=== PATIENT | female | born 1980 | race Caucasian/White ===

== ENCOUNTER 2018-02-04 07:35 | Emergency (ER) | END 2018-02-04 12:05 | disposition home or self-care (01) ==

== ENCOUNTER 2018-10-29 14:00 | Inpatient (IN) | END 2018-11-02 17:10 | disposition home or self-care (01) | DRG 807 ==

== ENCOUNTER 2019-01-05 04:08 | Emergency (ER) | payer BC ==
[~2019-01-05] VITALS: Ht 152.4 cm; Wt 74.5 kg
[~2019-01-05 04:08] MED LIST: METF-849 PO; PREN1TAB62 PO
[2019-01-05 04:15] VITALS: Ht 152.4 cm; Wt 74.5 kg
[2019-01-05] MEDS ORDERED: morphine 4 MG/ML VIAL IV STA (04:44)
[2019-01-05] MEDS ORDERED: ONDANSETRON 4 MG INJ IV STA ×2 (04:44→07:25)
--- NOTE | 2019-01-05 04:44 | ERD ---
ER Documentation Chief Complaint Chief Complaint PT C/O RUQ ABD PAIN RADIATES TO BACK ,N/V X2 DAYS. HPI 38-year-old female presents emergency department with complaints of right upper abdominal pain that started yesterday. Has nausea and vomiting. Stated that she gave 2 months ago. LMP: 2 weeks ago. . Denies headache, dizziness, blurry vision, changes in vision, neck pain, neck stiffness, throat pain, difficulty swallowing, difficulty breathing lying flat, loss of bowel bladder control, urinary symptoms, or possibility of being , vaginal bleeding, vaginal discharge, trauma, injury, falls, r ecent surgery in the last 3 weeks, recent travel, recent long travel, leg pain, difficulty walking, numbness or tingling sensation, recent exposure to any illness, recent antibiotic use in the last 3 months, fever, chills. Past medical history: Diabetes, gallstone. Surgical history: Denies. Medic ation: Metformin. ROS All systems reviewed and are negative except as per history of present illness. Medications Home Meds Active Scripts Metformin* (Glucophage*) 500 Mg Tab, 500 MG PO BID, #20 TAB Prov:SAMIR BOYCE PA-C 02/04/18 Reported Medications Vit-Iron Fumarate-FA ( Vitamin Tablet) 1 Each Tablet, 1 TAB PO DAILY, TAB 02/18/16 Allergies Allergies: Coded Allergies: No Known Allergy (Unverified , 09/05/16) PMhx/Soc Hx Alcohol Use: Yes (social) Hx Substance Use: No Hx Tobacco Use: No Physical Exam Vitals Vital Signs Date Temp Pulse Resp B/P (MAP) Pulse Ox O2 O2 Flow FiO2 Time Delivery Rate 01/05/19 98.5 75 17 146/75 100 04:15 (98) Physical Exam Const: No acute distress Head: Atraumatic Eyes: Normal Conjunctiva ENT: Normal External Ears, Nose and Mouth. Neck: Full range of motion. No meningismus. Resp: Clear to auscultation bilaterally Cardio: Regular rate and rhythm, no murmurs Abd: Soft, non tender, non distended. Normal bowel sounds. Has right upper abdominal tenderness to light and deep palpation. Negative José Miguel sign (heel jar test). Negative psoas sign. Negative Rovsing sign. No CVA tenderness. Skin: No petechiae or rashes. Back: No midline or flank tenderness Ext: No cyanosis, or edema Neur: Awake and alert. No neurological deficit. Psych: Normal Mood and Affect Result Diagram: 01/05/19 0453 01/05/19 0453 Results 24 hrs Laboratory Tests Test 01/05/19 04:53 01/05/19 06:41 White Blood Count 7.8 10^3/ul Red Blood Count 4.28 10^6/ul Hemoglobin 12.1 g/dl Hematocrit 36.9 % Mean Corpuscular Volume 86.2 fl Mean Corpuscular Hemoglobin 28.3 pg Mean Corpuscular Hemoglobin Concent 32.8 g/dl Red Cell Distribution Width 15.2 % Platelet Count 219 10^3/UL Mean Platelet Volume 13.6 fl Immature Granulocytes % 0.300 % Neutrophils % 74.1 % Lymphocytes % 18.9 % Monocytes % 5.7 % Eosinophils % 0.6 % Basophils % 0.4 % Nucleated Red Blood Cells % 0.0 /100WBC Immature Granulocytes # 0.020 10^3/ul Neutrophils # 5.8 10^3/ul Lymphocytes # 1.5 10^3/ul Monocytes # 0.4 10^3/ul Eosinophils # 0.1 10^3/ul Basophils # 0.0 10^3/ul Nucleated Red Blood Cells # 0.0 10^3/ul Urine Color YELLOW Urine Clarity CLEAR Urine pH 5.0 Urine Specific [place] 1.036 Urine Ketones NEGATIVE mg/dL Urine Nitrite NEGATIVE mg/dL Urine Bilirubin NEGATIVE mg/dL Urine Urobilinogen NEGATIVE mg/dL Urine Leukocyte Esterase NEGATIVE Melina/ul Urine Hemoglobin NEGATIVE mg/dL Urine Glucose 3+ mg/dL Urine Total Protein NEGATIVE mg/dl Urine Test NEGATIVE Sodium Level 136 mmol/L Potassium Level 4.2 mmol/L Chloride Level 103 mmol/L Carbon Dioxide Level 25 mmol/L Anion Gap 8 Blood Urea Nitrogen 13 mg/dl Creatinine 0.38 mg/dl Est Glomerular Filtrat Rate mL/min > 60 mL/min Glucose Level 307 mg/dl Calcium Level 9.6 mg/dl Total Bilirubin 0.2 mg/dl Direct Bilirubin 0.00 mg/dl Indirect Bilirubin 0.2 mg/dl Aspartate Amino Transf (AST/SGOT) 26 IU/L Alanine Aminotransferase (ALT/SGPT) 48 IU/L Alkaline Phosphatase 72 IU/L Total Protein 6.9 g/dl Albumin 4.0 g/dl Globulin 2.90 g/dl Albumin/Globulin Ratio 1.37 Amylase Level 61 U/L Lipase 136 U/L Bedside Glucose 296 mg/dL Current Medications Medications Dose Sig/Evelia Start Time Status Last (Trade) Ordered Route PRN Stop Time Admin Dose Reason Admin Sodium 1,000 ml @ Q1H ONCE 01/05/19 DC 01/05/19 Chloride 1,000 mls/hr IV 05:00 05:00 01/05/19 05:59 Ondansetron 4 mg ONCE STAT 01/05/19 DC 01/05/19 HCl (Zofran IV 04:44 05:00 Inj) 01/05/19 04:48 Morphine 4 mg ONCE STAT 01/05/19 DC 01/05/19 Sulfate IV 04:44 05:00 (morphine) 01/05/19 04:48 Procedures/MDM Diagnostic tests: HCG urine: Negative. Urinalysis: Reviewed. Blood works: Reviewed. Chest x-ray: No evidence for active cardiopulmonary disease. Ultrasound of the gallbladder: Distended gallbladder with stones and sludge. Positive sonographic Patino sign but no wall thickening or pericholecystic fluid. Findings are equivocal for acute cholecystitis. Consider scintigraphy for more definitive diagnosis. Fatty liver. No evidence of biliary obstruction. Poor visualization of pancreas. Treatment: Saline lock. Normal saline IV bolus. Morphine IV. Zofran IV. Re-evaluation: Differential diagnosis Final diagnosis: LEIA HUBER Jan 05, 2019 04:44
[2019-01-05] MEDS ORDERED: SOD CHLORIDE 0.9% 1,000 ML IV ONE (05:00)
[2019-01-05] MEDS ORDERED: HYDROmorphONE 1 MG/ML SYG IV STA (07:25)
[2019-01-05] MEDS ORDERED: KETOROLAC 30 MG INJ IV STA (07:25)
[2019-01-05] MEDS ORDERED: SOD CHLORIDE 0.9% 1,000 ML IV STA (07:25)
--- NOTE | 2019-01-05 07:26 | ERD ---
ER Documentation Chief Complaint Chief Complaint PT C/O RUQ ABD PAIN RADIATES TO BACK ,N/V X2 DAYS. HPI This is a very pleasant 38-year-old female with a history of [id number] diabetes mellitus and cholelithiasis. The patient said no past surgical history. The patient gave 2 months ago and currently is breast-feeding as well as giving the child formula. She indicates that at midnight, 2 hours prior to the onset of her symptoms she had eaten a meal. At 2 AM she awoke to feed her baby. She stated while breast-feeding she had a sudden onset of severe right upper quadrant pain that radiated to the tip of her right scapula. She states the pain was a sharp pain. 10 out of 10 in intensity. She had associated symptoms of nausea but did not experience any emesis. She indicated that the pain persisted for several hours that prompted her to come to the emergency department to be further evaluated. She did have one episode of nonbloody nonbilious emesis just prior to arrival. She had no diarrhea. She denies any recent travel. She states the pain does not radiate to her lower abdomen or back. She said no frequency urgency or dysuria denies any gross hematuria. She has no shortness of breath at rest or exertion. She denies any swelling of her lower extremities. ROS All systems reviewed and are negative except as per history of present illness. Medications Home Meds Active Scripts Metformin* (Glucophage*) 500 Mg Tab, 500 MG PO BID, #20 TAB Prov:SAMIR BOYCE PA-C 02/04/18 Reported Medications Vit-Iron Fumarate-FA ( Vitamin Tablet) 1 Each Tablet, 1 TAB PO DAILY, TAB 02/18/16 Allergies Allergies: Coded Allergies: No Known Allergy (Unverified , 09/05/16) PMhx/Soc Medical and Surgical Hx: pt denies Surgical Hx Hx Miscellaneous Medical Probl: Yes (DM) Hx Alcohol Use: Yes (social) Hx Substance Use: No Hx Tobacco Use: No Smoking Status: Never smoker Physical Exam Vitals Vital Signs Date Temp Pulse Resp B/P (MAP) Pulse Ox O2 O2 Flow FiO2 Time Delivery Rate 01/05/19 98.5 75 17 146/75 100 04:15 (98) Physical Exam Constitutional:Well-developed. Well-nourished. HEENT:Normocephalic. Atraumatic.Pupils were equal round reactive to light. Moist mucous membranes.No tonsillar exudates. Neck: No nuchal rigidity. No lymphadenopathy. No posterior cervical spine tenderness or step-offs. Respiratory: Not using accessory muscles of respiration.Lungs were clear to auscultation bilaterally. No rhonchi. No rales. No wheezing. Cardiovascular: Regular rate regular rhythm.No murmurs. No rubs were appreciated.S1, S2 normal. Distal pulses are palpable 2+ bilaterally. GI: Abdomen was soft. Right upper quadrant tenderness with positive Patino sign. No tenderness in the right lower quadrant over McBurney's point. Psoas sign negative. Obturator sign negative. Non Distended. No pulsatile abdominal masses or bruits. No rebound. No guarding. Bowel sounds were present and normal. Muscle skeletal: Full range of motion of both the upper and lower extremities bilaterally.Normal muscle tone.No assymetrical calf tenderness or swelling. Skin: No petechia, no purpura. No lesions on the palms or the soles of the feet. No maculopapular rash. NEURO: Patient was alert, awake, orientated x3.No facial droop. Gait observed and normal with no ataxia.Speech had regular rate and rhythm. No focal neurological deficits. Result Diagram: 01/05/19 0453 01/05/19 0453 Results 24 hrs Laboratory Tests Test 01/05/19 04:53 01/05/19 06:41 White Blood Count 7.8 10^3/ul Red Blood Count 4.28 10^6/ul Hemoglobin 12.1 g/dl Hematocrit 36.9 % Mean Corpuscular Volume 86.2 fl Mean Corpuscular Hemoglobin 28.3 pg Mean Corpuscular Hemoglobin Concent 32.8 g/dl Red Cell Distribution Width 15.2 % Platelet Count 219 10^3/UL Mean Platelet Volume 13.6 fl Immature Granulocytes % 0.300 % Neutrophils % 74.1 % Lymphocytes % 18.9 % Monocytes % 5.7 % Eosinophils % 0.6 % Basophils % 0.4 % Nucleated Red Blood Cells % 0.0 /100WBC Immature Granulocytes # 0.020 10^3/ul Neutrophils # 5.8 10^3/ul Lymphocytes # 1.5 10^3/ul Monocytes # 0.4 10^3/ul Eosinophils # 0.1 10^3/ul Basophils # 0.0 10^3/ul Nucleated Red Blood Cells # 0.0 10^3/ul Urine Color YELLOW Urine Clarity CLEAR Urine pH 5.0 Urine Specific [place] 1.036 Urine Ketones NEGATIVE mg/dL Urine Nitrite NEGATIVE mg/dL Urine Bilirubin NEGATIVE mg/dL Urine Urobilinogen NEGATIVE mg/dL Urine Leukocyte Esterase NEGATIVE Melina/ul Urine Hemoglobin NEGATIVE mg/dL Urine Glucose 3+ mg/dL Urine Total Protein NEGATIVE mg/dl Urine Test NEGATIVE Sodium Level 136 mmol/L Potassium Level 4.2 mmol/L Chloride Level 103 mmol/L Carbon Dioxide Level 25 mmol/L Anion Gap 8 Blood Urea Nitrogen 13 mg/dl Creatinine 0.38 mg/dl Est Glomerular Filtrat Rate mL/min > 60 mL/min Glucose Level 307 mg/dl Calcium Level 9.6 mg/dl Total Bilirubin 0.2 mg/dl Direct Bilirubin 0.00 mg/dl Indirect Bilirubin 0.2 mg/dl Aspartate Amino Transf (AST/SGOT) 26 IU/L Alanine Aminotransferase (ALT/SGPT) 48 IU/L Alkaline Phosphatase 72 IU/L Total Protein 6.9 g/dl Albumin 4.0 g/dl Globulin 2.90 g/dl Albumin/Globulin Ratio 1.37 Amylase Level 61 U/L Lipase 136 U/L Bedside Glucose 296 mg/dL Current Medications Medications Dose Sig/Evelia Start Time Status Last (Trade) Ordered Route PRN Stop Time Admin Dose Reason Admin Sodium 1,000 ml @ Q1H ONCE 01/05/19 DC 01/05/19 Chloride 1,000 mls/hr IV 05:00 05:00 01/05/19 05:59 Ondansetron 4 mg ONCE STAT 01/05/19 DC 01/05/19 HCl (Zofran IV 04:44 05:00 Inj) 01/05/19 04:48 Morphine 4 mg ONCE STAT 01/05/19 DC 01/05/19 Sulfate IV 04:44 05:00 (morphine) 01/05/19 04:48 Sodium 1,000 ml @ Q1H STAT 01/05/19 Chloride 1,000 mls/hr IV 07:25 01/05/19 08:24 1 mg ONCE STAT 01/05/19 DC Hydromorphone IV 07:25 HCl 01/05/19 07:26 (Dilaudid) Ondansetron 4 mg ONCE STAT 01/05/19 DC HCl (Zofran IV 07:25 Inj) 01/05/19 07:26 Ketorolac 30 mg ONCE STAT 01/05/19 DC Tromethamine IV 07:25 (Toradol) 01/05/19 07:26 Procedures/MDM The patient presented to the emergency department with epigastric pain. My differential diagnosis included but was not limited to abdominal aortic aneurysm, choledocholithiasis, gallstone ileus, renal colic, pyelonephritis, pancreatitis, peptic ulcer disease, atypical myocardical infarction, mesenteric ischemia, GERD, pulmonary infarction. The patient was placed on a rustic fence builder, continuous pulse oximetry and IV access was established by nursing staff. The patient was given intravenous morphine and Zofran for analgesic control. The patient's blood glucose is elevated at 307 however there is no evidence of ketosis. The patient received IV fluids to improve her hyperglycemia There was no elevation of LFTs to suggest ductal obstruction, cholangitis, cholecystiitis or hepatitis. Given that the urinalysis did not show bilirubinuria, my suspicion for common duct obstruction or hepatitis was low. I did obtain a 1 view chest radiograph in order to rule out for a right lower lobe pneumonia. There is no infiltrates that were seen on the chest radiograph. An ultrasound of the patient's abdomen was performed. The patient had a distended gallbladder with stones and sludge. There is positive sonographic Patino sign however there is no gallbladder wall thickening and no pericholecystic fluid. On the ultrasound the findings were equivocal for acute cholecystitis. I performed multiple repeat abdominal examinations. The patient's abdomen was benign with no peritoneal signs. She had received analgesic medication which further included Dilaudid Toradol and fluids. I had a lengthy discussion with the patient and she stated she would prefer to be discharged and did not want to have an emergent cholecystectomy given that she has a 2-month-old at home. She states she has had this pain in the past and has seen a surgeon. She states she would prefer to follow-up with her surgeon and schedule an outpatient cholecystectomy. The patient was discharged home in fair condition. They were instructed to return to the emergency department at any time if there was any worsening of their condition. The patient stated they would follow up with their PCP in the next 24-48 hours to initiate a suitable medication regimen under the care of their PCP as well as to allow their PCP to monitor any drug reactions. The patient was discharged home with prescriptions after they gave informed consent to the new medication. They were also fully informed by myself on the adverse effects and adverse drug interactions in order to provide adequate safe guards to prevent possible adverse reactions to medications. Departure Diagnosis: Primary Impression: Cholelithiasis Cholelithiasis location: gallbladder Cholecystitis presence: without cholecystitis Biliary obstruction: without biliary obstruction Qualified Codes: K80.20 - Calculus of gallbladder without cholecystitis without obstruction Additional Impression: Hyperglycemia without ketosis Condition: BRO Berry MD Jan 05, 2019 07:26
[2019-01-05] MEDS ORDERED: DOCU-144 PO (07:36)
[2019-01-05] MEDS ORDERED: IBUP800T48 PO (07:36)
[2019-01-05] MEDS ORDERED: HYDR-4011 PO (07:36)
[2019-01-05] MEDS ORDERED: ONDA4TAB14 PO (07:36)
[2019-01-05 08:34] VITALS: BP 99/54; PULSE 77; RESP 18
== END 2019-01-05 08:36 | disposition home or self-care (01) ==
LOC: FTE 04:08
DX: K80.20 Calculus of gallbladder without cholecystitis without obstruction (principal); E11.65 Type 2 diabetes mellitus with hyperglycemia; Z79.84 Long term (current) use of oral hypoglycemic drugs
CPT/HCPCS: 71046; 76705; 80053; 81003; 82150; 82962; 83690; 84703; 85025; 96361; 96374; 96375; 96376; 99285; J1170; J1885; J2270; J2405; J7030

== ENCOUNTER 2019-02-21 18:31 | Emergency (ER) | payer BC ==
[~2019-02-21] VITALS: Ht 157.5 cm; Wt 72.4 kg
[~2019-02-21 18:31] MED LIST changes: +DOCU-144 PO; +HYDR-4011 PO; +IBUP800T48 PO; +ONDA4TAB14 PO
[2019-02-21 18:41] VITALS: Ht 157.5 cm; Wt 72.4 kg
[2019-02-21] MEDS ORDERED: HYDROmorphONE 1 MG/ML SYG IV STA (21:14)
[2019-02-21] MEDS ORDERED: ONDANSETRON 4 MG INJ IV STA ×2 (21:14→23:30)
[2019-02-21] MEDS ORDERED: KETOROLAC 30 MG INJ IV STA (21:14)
[2019-02-21] MEDS ORDERED: SOD CHLORIDE 0.9% 1,000 ML IV STA ×2 (21:14→23:30)
--- NOTE | 2019-02-21 21:30 | ERD ---
ER Documentation Chief Complaint Chief Complaint Pt sched for choley next month but pain unbearable today HPI This is a 38-year-old female with a past medical history of cholelithiasis and [id number] diabetes. The patient has been at [facility] before for similar pain roughly 1 month ago. However she elected to not undergo a cholecystectomy as she was currently breast-feeding and had just given . Her child is 3 months of age. She indicates that on Monday roughly 4 days prior to arrival she developed recurrence of her right upper quadrant abdominal pain. The pain did radiate to the back. The pain is exacerbated with food. She indicates over the past several days she has had recurrence of these episodes of right upper quadrant pain however just prior to arrival the pain became 10 out of 10 in intensity with no alleviating or exacerbating factors. She stated she was expressing palpitations. She had taken [place] but this did not improve her symptoms. She had several episodes of nonbloody nonbilious emesis. ROS All systems reviewed and are negative except as per history of present illness. Medications Home Meds Active Scripts Ondansetron (Ondansetron Odt) 4 Mg Tab.rapdis, 4 MG PO Q6H PRN for NAUSEA AND/OR VOMITING, #10 TAB Prov:BRO RECIO MD 01/05/19 Hydrocodone/Acetaminophen ([place] 5-325 Tablet) 1 Each Tablet, 1 TAB PO Q6H PRN for PAIN, #20 TAB Prov:BRO RECIO MD 01/05/19 Ibuprofen* (Motrin*) 800 Mg Tab, 800 MG PO Q6H PRN for PAIN AND OR ELEVATED TEMP, #30 TAB Prov:BRO RECIO MD 01/05/19 Metformin* (Glucophage*) 500 Mg Tab, 500 MG PO BID, #20 TAB Prov:SAMIR BOYCE PA-C 02/04/18 Discontinued Reported Medications Vit-Iron Fumarate-FA ( Vitamin Tablet) 1 Each Tablet, 1 TAB PO DAILY, TAB 02/18/16 Discontinued Scripts Docusate Sodium* (Colace*) 100 Mg Capsule, 100 MG PO TID, #30 CAP Prov:BRO RECIO MD 01/05/19 Allergies Allergies: Coded Allergies: No Known Allergy (Unverified , 02/21/19) PMhx/Soc Medical and Surgical Hx: pt denies Surgical Hx Hx Miscellaneous Medical Probl: Yes (DM, gallstones) Hx Alcohol Use: Yes (social) Hx Substance Use: No Hx Tobacco Use: No Smoking Status: Never smoker Physical Exam Vitals Vital Signs Date Temp Pulse Resp B/P (MAP) Pulse Ox O2 O2 Flow FiO2 Time Delivery Rate 02/21/19 77 18 107/66 97 Room Air 22:35 (80) 02/21/19 98.7 85 16 148/81 100 18:41 (103) Physical Exam Constitutional:Well-developed. Well-nourished. Patient appeared to be in a significant amount discomfort secondary to pain HEENT:Normocephalic. Atraumatic.Pupils were equal round reactive to light. Moist mucous membranes.No tonsillar exudates. Neck: No nuchal rigidity. No lymphadenopathy. No posterior cervical spine tenderness or step-offs. Respiratory: Not using accessory muscles of respiration.Lungs were clear to auscultation bilaterally. No rhonchi. No rales. No wheezing. Cardiovascular: Regular rate regular rhythm.No murmurs. No rubs were appreciated.S1, S2 normal. Distal pulses are palpable 2+ bilaterally. GI: Abdomen was soft. Right upper quadrant tenderness. Positive Patino sign. No tenderness the right lower quadrant over McBurney's point. Psoas sign negative. Obturator sign negative.. Non Distended. No pulsatile abdominal masses or bruits. No rebound. No guarding. Bowel sounds were present and normal. Muscle skeletal: Full range of motion of both the upper and lower extremities bilaterally.Normal muscle tone.No assymetrical calf tenderness or swelling. Skin: No petechia, no purpura. No lesions on the palms or the soles of the feet. No maculopapular rash. NEURO: Patient was alert, awake, orientated x3.No facial droop. Gait observed and normal with no ataxia.Speech had regular rate and rhythm. No focal neurological deficits. Result Diagram: 02/21/19212502/21/192125 Results 24 hrs Laboratory Tests Test 02/21/19 19:32 02/21/19 21:26 Bedside Glucose 263 mg/dL White Blood Count 13.0 10^3/ul Red Blood Count 4.83 10^6/ul Hemoglobin 14.4 g/dl Hematocrit 42.1 % Mean Corpuscular Volume 87.2 fl Mean Corpuscular Hemoglobin 29.8 pg Mean Corpuscular Hemoglobin Concent 34.2 g/dl Red Cell Distribution Width 12.9 % Platelet Count 262 10^3/UL Mean Platelet Volume 14.4 fl Immature Granulocytes % 0.600 % Neutrophils % 87.7 % Lymphocytes % 7.5 % Monocytes % 4.0 % Eosinophils % 0.0 % Basophils % 0.2 % Nucleated Red Blood Cells % 0.0 /100WBC Immature Granulocytes # 0.080 10^3/ul Neutrophils # 11.4 10^3/ul Lymphocytes # 1.0 10^3/ul Monocytes # 0.5 10^3/ul Eosinophils # 0.0 10^3/ul Basophils # 0.0 10^3/ul Nucleated Red Blood Cells # 0.0 10^3/ul Urine Color YELLOW Urine Clarity SLIGHTLY CLOUDY Urine pH 5.0 Urine Specific [place] 1.038 Urine Ketones 2+ mg/dL Urine Nitrite NEGATIVE mg/dL Urine Bilirubin NEGATIVE mg/dL Urine Urobilinogen NEGATIVE mg/dL Urine Leukocyte Esterase NEGATIVE Melina/ul Urine Microscopic RBC 2 /HPF Urine Microscopic WBC 7 /HPF Urine Squamous Epithelial Cells FEW /HPF Urine Mucus FEW /HPF Urine Hemoglobin NEGATIVE mg/dL Urine Glucose 3+ mg/dL Urine Total Protein NEGATIVE mg/dl Sodium Level 135 mmol/L Potassium Level 4.6 mmol/L Chloride Level 99 mmol/L Carbon Dioxide Level 24 mmol/L Anion Gap 12 Blood Urea Nitrogen 9 mg/dl Creatinine 0.34 mg/dl Est Glomerular Filtrat Rate mL/min > 60 mL/min Glucose Level 257 mg/dl Calcium Level 9.7 mg/dl Total Bilirubin 1.0 mg/dl Direct Bilirubin 0.00 mg/dl Indirect Bilirubin 1.0 mg/dl Aspartate Amino Transf (AST/SGOT) 21 IU/L Alanine Aminotransferase (ALT/SGPT) 29 IU/L Alkaline Phosphatase 75 IU/L Troponin I < 0.012 ng/ml Total Protein 8.2 g/dl Albumin 4.6 g/dl Globulin 3.60 g/dl Albumin/Globulin Ratio 1.27 Amylase Level 60 U/L Lipase 49 U/L Current Medications Medications Dose Sig/Evelia Start Time Status Last (Trade) Ordered Route PRN Stop Time Admin Dose Reason Admin Sodium 1,000 ml @ Q1H STAT 02/21/19 DC 02/21/19 Chloride 1,000 mls/hr IV 21:14 02/21/19 21:21 22:13 1 mg ONCE STAT 02/21/19 DC 02/21/19 Hydromorphone IV 21:14 02/21/19 21:21 HCl 21:16 (Dilaudid) Ondansetron 4 mg ONCE STAT 02/21/19 DC 02/21/19 HCl (Zofran IV 21:14 02/21/19 21:20 Inj) 21:16 Ketorolac 30 mg ONCE STAT 02/21/19 DC 02/21/19 Tromethamine IV 21:14 02/21/19 21:20 (Toradol) 21:16 Procedures/MDM The patient presented to the emergency department with epigastric pain. My differential diagnosis included but was not limited to abdominal aortic aneurysm, choledocholithiasis, gallstone ileus, renal colic, pyelonephritis, pancreatitis, peptic ulcer disease, atypical myocardical infarction, mesenteric ischemia, GERD, pulmonary infarction. The patient was placed on a cardiac technician, continuous pulse oximetry and IV access was established by nursing staff. The patient received intravenous morphine and Zofran for analgesic control There was no elevation of LFTs to suggest ductal obstruction, cholangitis, or hepatitis. Given that the urinalysis did not show bilirubinuria, my suspicion for common duct obstruction or hepatitis was low. Ultrasound of the gallbladder reviewed by myself the radiologist indicate the following: Small calcified stones and a moderate amount of sludge within the gallbladder. Associated gallbladder wall thickening and pericholecystic fluid may represent acute cholecystitis. This could be confirmed with a HIDA scan if clinically indicated. Observation Note: Time: 5 hours Family Hx: No Hypertension Evaluation: Multiple exams showed improving symptoms however indicated the patient that clinically I was concerned with acute cholecystitis. The patient was a medical capacity to make own decisions and stated that she would prefer to leave and follow-up on an outpatient basis with a cholecystectomy as she currently has a 3-month-old child at home and at this time does not want any surgical intervention. She received a further dose of IV analgesic medication. She was however instructed that she can return to the emergency department anytime if there is any worsening of her symptoms. Departure Diagnosis: Primary Impression: Hyperglycemia without ketosis Additional Impression: Cholelithiasis Cholelithiasis location: gallbladder Cholecystitis presence: with cholecystitis Cholecystitis acuity: acute and chronic Biliary obstruction: without biliary obstruction Qualified Codes: K80.12 - Calculus of gallbladder with acute and chronic cholecystitis without obstruction Condition: BRO Berry MD Feb 21, 2019 21:29
[2019-02-21] MEDS ORDERED: PIPER-TAZO 3.375 GM IV (PMX) 100 ML IVPB ONE (23:30)
[2019-02-21] MEDS ORDERED: morphine 4 MG/ML VIAL IV STA (23:30)
[2019-02-21] MEDS ORDERED: DOCU-144 PO (23:39)
[2019-02-21] MEDS ORDERED: IBUP800T48 PO (23:39)
[2019-02-21] MEDS ORDERED: HYDR-4011 PO (23:39)
[2019-02-22 00:06] VITALS: BP 104/61; PULSE 82; RESP 20
== END 2019-02-22 00:05 | disposition home or self-care (01) ==
LOC: E/R 18:31
DX: K80.12 Calculus of gallbladder with acute and chronic cholecystitis without obstruction (principal); E11.65 Type 2 diabetes mellitus with hyperglycemia; Z79.84 Long term (current) use of oral hypoglycemic drugs
CPT/HCPCS: 36415; 76705; 80053; 81001; 82150; 82962; 83690; 84484; 84703; 85025; 96374; 96375; 96376; 99285; J1170; J1885; J2270; J2405; J7030; 81003

== ENCOUNTER 2019-02-22 03:18 | Inpatient (IN) | payer BC ==
[~2019-02-22] VITALS: Ht 149.9 cm; Wt 73.6 kg
[~2019-02-22 03:18] MED LIST changes: -PREN1TAB62 PO
--- NOTE | 2019-02-22 03:49 | ERD ---
ER Documentation Chief Complaint Chief Complaint Abdominal pain HPI The patient is a 38-year-old female, presenting to the ER because of recurrent abdominal pain. She has had abdominal pain for the last 2 days, was seen earlier today, had an ultrasound that show gallbladder wall thickening and pericholecystic fluid, concerning for acute cholecystitis. She was given options either to admit or to go home and follow-up with her doctor. She wanted to go home because she had a 3-month-old baby. She came back tonight because of worsening abdominal pain. She had similar pain from gallbladder attack, denies fever, chills, neck pain, chest pain, dyspnea, vomiting, dizzy, diarrhea. She does not smoke or drink Past medical history: Diabetes mellitus, cholelithiasis Past surgical history: None ROS All systems reviewed and are negative except as per history of present illness. Medications Home Meds Active Scripts Docusate Sodium* (Colace*) 100 Mg Capsule, 100 MG PO TID, #30 CAP Prov:BRO RECIO MD 02/21/19 Ibuprofen* (Motrin*) 800 Mg Tab, 800 MG PO Q6H PRN for PAIN AND OR ELEVATED TEMP, #30 TAB Prov:BRO RECIO MD 02/21/19 Hydrocodone/Acetaminophen ([place] 5-325 Tablet) 1 Each Tablet, 1 TAB PO Q6H PRN for PAIN, #20 TAB Prov:BRO RECIO MD 02/21/19 Ondansetron (Ondansetron Odt) 4 Mg Tab.rapdis, 4 MG PO Q6H PRN for NAUSEA AND/OR VOMITING, #10 TAB Prov:BRO RECIO MD 01/05/19 Hydrocodone/Acetaminophen ([place] 5-325 Tablet) 1 Each Tablet, 1 TAB PO Q6H PRN for PAIN, #20 TAB Prov:BRO RECIO MD 01/05/19 Ibuprofen* (Motrin*) 800 Mg Tab, 800 MG PO Q6H PRN for PAIN AND OR ELEVATED TEMP, #30 TAB Prov:BRO RECIO MD 01/05/19 Metformin* (Glucophage*) 500 Mg Tab, 500 MG PO BID, #20 TAB Prov:SAMIR BOYCE PA-C 02/04/18 Discontinued Reported Medications Vit-Iron Fumarate-FA ( Vitamin Tablet) 1 Each Tablet, 1 TAB PO DAILY, TAB 02/18/16 Discontinued Scripts Docusate Sodium* (Colace*) 100 Mg Capsule, 100 MG PO TID, #30 CAP Prov:BRO RECIO MD 01/05/19 Allergies Allergies: Coded Allergies: No Known Allergy (Unverified , 02/21/19) PMhx/Soc History of Surgery: No Anesthesia Reaction: No Hx Neurological Disorder: No Hx Respiratory Disorders: No Hx Cardiac Disorders: No Hx Psychiatric Problems: No Hx Miscellaneous Medical Probl: Yes (DM, Gallstones) Hx Alcohol Use: Yes (social) Hx Substance Use: No Hx Tobacco Use: No Smoking Status: Never smoker Physical Exam Vitals Vital Signs Date Temp Pulse Resp B/P (MAP) Pulse Ox O2 O2 Flow FiO2 Time Delivery Rate 02/22/19 88 145/100 100 Room Air 03:35 (115) 02/22/19 98.9 79 16 155/77 99 03:26 (103) Physical Exam Const: No acute distress. Head: Atraumatic. Eyes: Normal Conjunctiva. ENT: Normal External Ears, Nose and Mouth. Neck: Full range of motion. No meningismus. Resp: Clear to auscultation bilaterally. Cardio: Regular rate and rhythm. Abd: Soft, non distended, normal bowel sounds, moderate right upper quadrant tenderness, no right lower quadrant/epigastric/CVA/rigidity or rebound tenderness Skin: No petechiae or rashes. Back: No midline or flank tenderness. Ext: No cyanosis, or edema. Neur: Awake and alert. No focal deficit Psych: Normal Mood and Affect. Results 24 hrs Laboratory Tests Test 02/22/19 04:44 Bedside Glucose 264 mg/dL Current Medications Medications Dose Sig/Evelia Start Time Status Last (Trade) Ordered Route PRN Stop Time Admin Dose Reason Admin 0.5 mg ONCE STAT 02/22/19 DC 02/22/19 Hydromorphone IV 03:55 02/22/19 04:04 HCl 03:57 (Dilaudid) Ondansetron 4 mg ONCE STAT 02/22/19 DC 02/22/19 HCl (Zofran IV 03:55 02/22/19 04:04 Inj) 03:57 Piperacillin 100 ml @ ONCE ONCE 02/22/19 DC 02/22/19 Sod/ 200 mls/hr IVPB 04:00 02/22/19 04:04 Tazobactam 04:29 Sod Sodium 1,000 ml @ Q1H ONCE 02/22/19 DC 02/22/19 Chloride 1,000 mls/hr IV 04:00 02/22/19 04:04 04:59 Procedures/MDM [place] [id number] Radiology Main Line: [phone] DIAGNOSTIC IMAGING REPORT Patient: SHAILA MCCORMICK : 1980 Age: 38 Sex: F MR #: [id number] DOS: 02/21/194 Ordering MD: BRO RECIO MD Location: E/R Room/Bed: PROCEDURE: US Abdomen. CLINICAL INDICATION: abdominal pain TECHNIQUE: Multiple real-time images were acquired of the patient's right upper quadrant abdomen and retroperitoneum utilizing a high resolution transducer. COMPARISON: 01/05/2019 FINDINGS: The liver demonstrates increased echogenicity. The liver is normal in size and no focal solid lesions are seen. The liver measures 16.2 cm in length. The portal vein is patent with normal direction of flow. No intrahepatic biliary d ilatation is seen. There are calcified stones and a moderate amount of sludge within the gallbladder. The gallbladder wall is thickened, measuring 6 mm. There is evidence of pericholecystic fluid. The common bile duct measures 3.7 mm. The visualized portions of the pancreas are unremarkable. The tail of the pancreas is not seen. No free fluid is identified. The right kidney is normal in size, and demonstrate normal echogenicity and cortical thickness. The right kidney measures 10.8 cm in long dimension. There is no evidence of hydronephrosis. There are no kidney stones. RPTAT: AA IMPRESSION: Small calcified stones and a moderate amount of sludge within the gallbladder. Associated gallbladder wall thickening and pericholecystic fluid may represent acute cholecystitis. This could be confirmed with a HIDA scan if clinically indicated.. .Dakota Gonzalez MD, MD Date Time Electronically viewed and signed by .Dakota Gonzalez MD, on 02/21/2019 21:51 .S/ CC: BRO RECIO MD [id number] Consultation: I paged and informed the on-call general surgeon Dr Lucio by [employer] and CPOE She had extensive labs that were done a few hours ago, there is no need to repeat this test MEDICAL MAKING DECISION: The patient is a 38-year-old female, presenting with acute abdominal pain that is concerning for acute cholecystitis. She was treated with 1 L normal saline for acute clinical dehydration, Dilaudid 1 mg IV for pain, Zofran 4 mg IV for nausea and Zosyn IV for acute cholecystitis with good response. She may need to have a HIDA scan to confirm acute cholecystitis The differential diagnoses considered include but are not limited to cholelithiasis, cholecystitis, choledocholithiasis, cholangitis, pancreatitis, hepatitis, gastritis, peptic ulcer disease, gastric ulcer, appendicitis, cystitis, diverticulitis, partial small bowel obstruction. Departure Diagnosis: Primary Impression: Cholecystitis Condition: Stable Comments The patient's blood pressure was elevated (>120/80) but appears stable without evidence of hypertension emergency or urgency. The patient was counseled about the risks of hypertension and urged to pursue outpatient monitoring and therapy within a week with their primary care physician. I discussed the findings with the patient. I discussed the patient with the [facility] hospitalist Dr Avila who was made aware of the lab, the treatment, the patient condition. The patient is admitted to [facility] Disclaimer: Inadvertent spelling and grammatical errors are likely due to EHR/dictation software use and do not reflect on the overall quality of patient care. Also, please note that the electronic time recorded on this note does not necessarily reflect the actual time of the patient encounter. CRISTIANO PEREA MD Feb 22, 2019 03:49
[2019-02-22] MEDS ORDERED: ONDANSETRON 4 MG INJ IV STA ×2 (03:55→06:47)
[2019-02-22] MEDS ORDERED: HYDROmorphONE 0.5 MG/0.5 ML SYG IV STA (03:55)
[2019-02-22] MEDS ORDERED: PIPER-TAZO 3.375 GM IV (PMX) 100 ML IVPB ONE (04:00)
[2019-02-22] MEDS ORDERED: SOD CHLORIDE 0.9% 1,000 ML IV ONE (04:00)
[2019-02-22] MEDS ORDERED: morphine 4 MG/ML VIAL IV STA (06:47)
[2019-02-22] MEDS ORDERED: ONDANSETRON 4 MG INJ IV PRN (07:00)
[2019-02-22 08:15] VITALS: Ht 149.9 cm; Wt 73.6 kg
[2019-02-22 08:23] VITALS: BP 126/68; PULSE 73; RESP 18
[2019-02-22] MEDS ORDERED: ACETAMINOPHEN 650 MG SUPP PR PRN (09:00)
[2019-02-22] MEDS ORDERED: HYDROmorphONE 0.5 MG/0.5 ML SYG IV PRN (09:00)
[2019-02-22] MEDS ORDERED: MAGNESIUM HYDROXIDE 30ML CUP PO PRN (09:00)
[2019-02-22] MEDS ORDERED: NACL 0.9% 3 ML SYG IV SCH (09:00)
[2019-02-22] MEDS ORDERED: DOCUSATE SODIUM 100 MG CAP PO PRN (09:00)
[2019-02-22] MEDS ORDERED: BISACODYL 10 MG SUPP PR PRN (09:00)
[2019-02-22] MEDS: SOD CHLORIDE 0.9% 1,000 ML IV SCH ×2 (09:20→17:23)
[2019-02-22] MEDS: HYDROmorphONE 1 MG/ML SYG IV PRN ×5 (09:20→20:17)
[2019-02-22] MEDS: FAMOTIDINE 20 MG INJ IV SCH ×2 (09:20→20:17)
[2019-02-22] MEDS ORDERED: GLUCAGON 1 MG INJ IM PRN (09:30)
[2019-02-22] MEDS ORDERED: GLUCOSE GEL 15 GRAM TUBE BUCCAL PRN (09:30)
[2019-02-22] MEDS ORDERED: DEXTROSE 50% 50 ML SYRINGE IV PRN ×2 (09:30)
[2019-02-22] MEDS ORDERED: GLUCOSE GEL 15 GRAM TUBE PO PRN ×2 (09:30)
--- NOTE | 2019-02-22 10:31 | HP ---
Date/Time of Note Date/Time of Note DATE: 02/22/19 TIME: 10:20 Assessment/Plan VTE Prophylaxis SCD applied (from Ns): Yes Pharmacological prophylaxis: NA/contraindicated Pharm contraindication: surgical contra Assessment/Plan Assessment/Plan 38-year-old female with: 1. Acute cholecystitis, ongoing severe right upper quadrant pain with nausea. Continue IV antibiotics IV fluids, antiemetic and Dilaudid for pain control Surgery was consulted from ER overnight and to see patient N.p.o. 2. Diabetes mellitus: Patient on Metformin that she has not taken for the past 4 days due to decreased p.o. intake and p.o. intolerance. Sliding scale insulin Check A1c in a.m. Hold metformin until postoperatively. Prophylaxis: SCDs for DVT prophylaxis, Pepcid for GI prophylaxis Disposition: Awaiting surgical consult, hopefully OR for cholecystectomy today. Patient n.p.o., on IV fluids and IV antibiotics. Result Diagram: 02/22/19 0708 02/22/19 0708 Results 24hrs Laboratory Tests Test 02/22/19 04:44 02/22/19 07:08 02/22/19 08:06 Bedside Glucose 264 H 246 H White Blood Count 13.2 H Red Blood Count 4.41 Hemoglobin 13.1 Hematocrit 39.5 Mean Corpuscular Volume 89.6 Mean Corpuscular Hemoglobin 29.7 Mean Corpuscular Hemoglobin Concent 33.2 Red Cell Distribution Width 12.7 Platelet Count 196 # Mean Platelet Volume 13.6 H Immature Granulocytes % 0.600 H Neutrophils % 86.3 H Lymphocytes % 6.9 L Monocytes % 6.0 Eosinophils % 0.0 Basophils % 0.2 Nucleated Red Blood Cells % 0.0 Immature Granulocytes # 0.080 H Neutrophils # 11.4 H Lymphocytes # 0.9 Monocytes # 0.8 Eosinophils # 0.0 Basophils # 0.0 Nucleated Red Blood Cells # 0.0 Prothrombin Time 13.7 Prothrombin Time Ratio 1.1 INR International Normalized Ratio 1.04 Activated Partial Thromboplast Time 27.5 Sodium Level 137 Potassium Level 3.7 Chloride Level 104 Carbon Dioxide Level 20 L Anion Gap 13 Blood Urea Nitrogen 7 Creatinine 0.28 L Est Glomerular Filtrat Rate mL/min > 60 Glucose Level 275 H Calcium Level 8.7 Total Bilirubin 0.9 Direct Bilirubin 0.00 Indirect Bilirubin 0.9 Aspartate Amino Transf (AST/SGOT) 18 Alanine Aminotransferase (ALT/SGPT) 29 Alkaline Phosphatase 63 Total Protein 6.7 # Albumin 3.7 Globulin 3.00 Albumin/Globulin Ratio 1.23 HPI/ROS Admit Date/Time Admit Date/Time Feb 22, 2019 at 05:12 Hx of Present Illness Chief complaint: Right upper quadrant pain, nausea and vomiting History of presenting illness: 38-year-old female with known cholelithiasis and episodes of choledocholithiasis, presented with severe right upper quadrant pain for the past 4 days with nausea and vomiting. Patient reports that she was seen in December, she has been , she was given a choice at that point for surgical intervention versus pain management, however at that time the diagnosis seems to have been choledocholithiasis mainly. Patient was discharged from ER then per her wish on [place] and ibuprofen for pain control. She has been taking [place] and ibuprofen for pain control however over the past 4 days her pain became unbearable, not relieved with the pain medications. She was having nausea and vomiting along with anorexia. She has seen a surgeon outpatient apparently, she was being scheduled for elective cholecystectomy however her pain was so severe yesterday that she came to the emergency department. On-call surgeon has been called since her ultrasound did show signs of acute cholecystitis which is also consistent with her clinical presentation, she has elevated white count and was started on IV antibiotics. Patient is currently n.p.o., IV fluids and IV antibiotics are on board. On-call surgeon called overnight is Dr. Lan Calzada, I have left him a message again this morning to confirm if patient is on the schedule for hopefully cholecystectomy today. Patient is still in severe pain, she still having ongoing nausea. ROS Constitutional: no complaints Eyes: no complaints Respiratory: no complaints Cardiovascular: no complaints Gastrointestinal: pain, decreased appetite, nausea, vomiting Genitourinary: no complaints Musculoskeletal: back pain Skin: no complaints Endocrine: no complaints Lymphatic: no complaints Psychological: no complaints PMH/Family/Social Past Medical History Medical History: diabetes Medications Current Medications Piperacillin Sod/ Tazobactam Sod 100 ml @ 200 mls/hr Q6 IVPB ; Start 02/22/19 at 12:00 Ondansetron HCl (Zofran Inj) 4 mg Q4H PRN IV NAUSEA; Start 02/22/19 at 07:00 IV Flush (NS 3 ml) 3 ml PER PROTOCOL IV ; Start 02/22/19 at 09:00 Acetaminophen (Tylenol Tab) 650 mg Q6H PRN PO .PAIN 1-3 OR TEMP; Start 02/22/19 at 09:00 Acetaminophen (Tylenol Supp) 650 mg Q6H PRN [place] .PAIN 1-3 OR TEMP; Start 02/22/19 at 09:00 Hydromorphone HCl (Dilaudid) 1 mg Q3H PRN IV .SEVERE PAIN 7-10 Last administered on 02/22/19at 10:11; Admin Dose 1 MG; Start 02/22/19 at 09:30 Docusate Sodium (Colace) 100 mg Q12H PRN PO .CONSTIPATION; Start 02/22/19 at 09:00 Magnesium Hydroxide (Milk Of Mag) 30 ml DAILY PRN PO .CONSTIPATION; Start 02/22/19 at 09:00 Bisacodyl (Dulcolax Supp) 10 mg DAILY PRN [place] .CONSTIPATION; Start 02/22/19 at 09:00 Famotidine (Pepcid Iv) 20 mg Q12 IV Last administered on 02/22/19at 09:20; Admin Dose 20 MG; Start 02/22/19 at 09:00 Hydromorphone HCl (Dilaudid) 0.5 mg Q3H PRN IV PAIN LEVEL 4-7; Start 02/22/19 at 09:00 Diagnostic Test (Pha) (Accu-Chek) 1 ea 02 XX ; Start 02/23/19 at 02:00 Insulin Aspart (Novolog Insulin Pen) NOVOLOG *MODERATE* ALGORITHM WITH MEALS BEDTIME SC ; Start 02/22/19 at 12:00 Sodium Chloride 1,000 ml @ 125 mls/hr Q8H IV Last administered on 02/22/19at 09:20; Admin Dose 125 MLS/HR; Start 02/22/19 at 09:30 Miscellaneous Information 1 ea NOTE XX ; Start 02/22/19 at 09:30 Glucose (Glutose) 15 gm Q15M PRN PO DECREASED GLUCOSE; Start 02/22/19 at 09:30 Glucose (Glutose) 22.5 gm Q15M PRN PO DECREASED GLUCOSE; Start 02/22/19 at 09:30 Dextrose (D50w Syringe) 25 ml Q15M PRN IV DECREASED GLUCOSE; Start 02/22/19 at 09:30 Dextrose (D50w Syringe) 50 ml Q15M PRN IV DECREASED GLUCOSE; Start 02/22/19 at 09:30 Glucagon (Glucagen) 1 mg Q15M PRN IM DECREASED GLUCOSE; Start 02/22/19 at 09:30 Glucose (Glutose) 15 gm Q15M PRN BUCCAL DECREASED GLUCOSE; Start 02/22/19 at 09:30 Coded Allergies: No Known Allergy (Unverified , 02/21/19) Past Surgical History Past Surgical Hx: no surgical history Social History Alcohol Use: none Smoking Status: Never smoker Drug Use: none Exam/Review of Systems Vital Signs Vitals Vital Signs Date Temp Pulse Resp B/P (MAP) Pulse Ox O2 O2 Flow FiO2 Time Delivery Rate 02/22/19 98.5 73 18 126/68 98 Room Air 08:23 (87) Exam Constitutional: alert, oriented, well developed, distress (From abdominal pain) Respiratory: clear to auscultation, normal air movement Cardiovascular: regular rate and rhythm, nl pulses Gastrointestinal: soft, tender (Right upper quadrant/epigastric area.) Musculoskeletal: nl extremities to inspection, nl gait and stance Extremities: normal pulses, other (No edema, clubbing or cyanosis) Neurological: [employer]PERATIONS SPECIALIST II-XII intact, nl mental status, nl speech, nl strength Skin: nl turgor Lymph: nl lymph nodes Additional Comments PROCEDURE: US Abdomen. CLINICAL INDICATION: abdominal pain TECHNIQUE: Multiple real-time images were acquired of the patient's right upper quadrant abdomen and retroperitoneum utilizing a high resolution transducer. COMPARISON: 01/05/2019 FINDINGS: The liver demonstrates increased echogenicity. The liver is normal in size and no focal solid lesions are seen. The liver measures 16.2 cm in length. The portal vein is patent with normal direction of flow. No intrahepatic biliary dilatation is seen. There are calcified stones and a moderate amount of sludge within the gallbladder. The gallbladder wall is thickened, measuring 6 mm. There is evidence of pericholecystic fluid. The common bile duct measures 3.7 mm. The visualized portions of the pancreas are unremarkable. The tail of the pancreas is not seen. No free fluid is identified. The right kidney is normal in size, and demonstrate normal echogenicity and cortical thickness. The right kidney measures 10.8 cm in long dimension. There is no evidence of hydronephrosis. There are no kidney stones. RPTAT: AA IMPRESSION: Small calcified stones and a moderate amount of sludge within the gallbladder. Associated gallbladder wall thickening and pericholecystic fluid may represent acute cholecystitis. This could be confirmed with a HIDA scan if clinically indicated.. .Dakota Gonzalez MD, MD Date Time Electronically viewed and signed by .Dakota Gonzalez MD, on 02/21/2019 21:51 CLEMENTE VILLANUEVA Feb 22, 2019 10:30
[2019-02-22] MEDS ORDERED: INSULIN ASPART [NOVOLOG] 3 ML PEN SC SCH (12:00)
[2019-02-22] MEDS: PIPER-TAZO 3.375 GM IV (PMX) 100 ML IVPB SCH ×2 (12:21→17:20)
[2019-02-22] MEDS: INSULIN ASPART [NOVOLOG] 3 ML PEN SC SCH ×3 (12:24→20:28)
[2019-02-22 14:57] VITALS: BP 110/65; PULSE 103; RESP 18
[2019-02-22 20:00] VITALS: BP 123/73; PULSE 101; RESP 17
[2019-02-22] MEDS: ACETAMINOPHEN 325 MG TAB PO PRN (20:18)
[2019-02-23] MEDS: HYDROmorphONE 1 MG/ML SYG IV PRN ×8 (00:13→22:27)
[2019-02-23] MEDS: PIPER-TAZO 3.375 GM IV (PMX) 100 ML IVPB SCH ×5 (00:14→23:46)
[2019-02-23] MEDS: SOD CHLORIDE 0.9% 1,000 ML IV SCH ×3 (00:14→17:25)
[2019-02-23] MEDS: INSULIN ASPART [NOVOLOG] 3 ML PEN SC SCH ×6 (01:10→20:17)
[2019-02-23 02:00] VITALS: BP 103/62; PULSE 91; RESP 18
[2019-02-23] MEDS ORDERED: ACCU-CHEK XX SCH ×2 (02:00)
[2019-02-23] MEDS: ACETAMINOPHEN 325 MG TAB PO PRN ×3 (05:24→20:55)
[2019-02-23 08:00] VITALS: BP 110/64; PULSE 94; RESP 18
[2019-02-23] MEDS ORDERED: POTASSIUM CHLORIDE (SR) 20 MEQ TAB PO STA (08:20)
[2019-02-23] MEDS: FAMOTIDINE 20 MG INJ IV SCH ×2 (08:56→20:16)
--- NOTE | 2019-02-23 12:22 | PN ---
Date/Time of Note Date/Time of Note DATE: 02/23/19 TIME: 12:20 Assessment/Plan VTE Prophylaxis Risk score (from Nsg)>0 risk: 2 SCD applied (from Nsg): Yes Pharmacological prophylaxis: other Lines/Catheters IV Catheter Type (from Nrsg): Peripheral IV Urinary Cath still in place: No Assessment/Plan Assessment/Plan 1. acute cholecystitis, case dw dr chicas who agrees to see patient later today, cont npo for possible surgery this PM Result Diagram: 02/23/19 0510 02/23/19 0510 Results 24hrs Laboratory Tests Test 02/22/19 17:19 02/22/19 20:25 02/23/19 01:05 02/23/19 05:02 Bedside Glucose 210 176 167 Amylase Level < 30 Lipase 29 Test 02/23/19 05:10 02/23/19 05:17 02/23/19 08:52 White Blood Count 12.0 H Red Blood Count 4.36 Hemoglobin 12.8 Hematocrit 39.6 Mean Corpuscular Volume 90.8 Mean Corpuscular 29.4 Hemoglobin Mean Corpuscular 32.3 Hemoglobin Concent Red Cell Distribution 13.0 Width Platelet Count 181 Mean Platelet Volume 13.8 H Immature Granulocytes % 0.300 Neutrophils % 79.1 H Lymphocytes % 11.5 L Monocytes % 8.8 Eosinophils % 0.2 Basophils % 0.1 Nucleated Red Blood 0.0 Cells % Immature Granulocytes # 0.040 H Neutrophils # 9.5 H Lymphocytes # 1.4 Monocytes # 1.1 H Eosinophils # 0.0 Basophils # 0.0 Nucleated Red Blood 0.0 Cells # Sodium Level 137 Potassium Level 3.3 L Chloride Level 104 Carbon Dioxide Level 23 Anion Gap 10 Blood Urea Nitrogen 9 Creatinine 0.33 L Est Glomerular Filtrat > 60 Rate mL/min Glucose Level 152 # Hemoglobin A1c 10.2 H Calcium Level 8.4 Phosphorus Level 1.9 L Magnesium Level 1.9 Total Bilirubin 0.9 Direct Bilirubin 0.00 Indirect Bilirubin 0.9 Aspartate Amino 25 Transf (AST/SGOT) Alanine 31 Aminotransferase (ALT/SG PT) Alkaline Phosphatase 53 Total Protein 6.3 Albumin 3.3 Globulin 3.00 Albumin/Globulin Ratio 1.10 Triglycerides Level 100 Cholesterol Level 118 LDL Cholesterol, 62 Calculated HDL Cholesterol 36 Cholesterol/HDL Ratio 3.2 Bedside Glucose 165 150 Subjective 24 Hr Interval Summary Free Text/Dictation still with pain, requiring meds frequentlky, does have headache also Exam/Review of Systems Exam Vitals Vital Signs Date Temp Pulse Resp B/P (MAP) Pulse Ox O2 O2 Flow FiO2 Time Delivery Rate 02/23/19 98.6 94 18 110/64 95 Room Air 08:00 (79) Intake and Output 02/22/19 02/22/19 02/23/19 1515:00 23:00 07:00 IntakeIntake Total 100 ml 600 ml 1300 ml BalanceBalance 100 ml 600 ml 1300 ml Exam nad, ctab, rrr Results Results 24hrs Laboratory Tests Test 02/22/19 17:19 02/22/19 20:25 02/23/19 01:05 02/23/19 05:02 Bedside Glucose 210 176 167 Amylase Level < 30 Lipase 29 Test 02/23/19 05:10 02/23/19 05:17 02/23/19 08:52 White Blood Count 12.0 H Red Blood Count 4.36 Hemoglobin 12.8 Hematocrit 39.6 Mean Corpuscular Volume 90.8 Mean Corpuscular 29.4 Hemoglobin Mean Corpuscular 32.3 Hemoglobin Concent Red Cell Distribution 13.0 Width Platelet Count 181 Mean Platelet Volume 13.8 H Immature Granulocytes % 0.300 Neutrophils % 79.1 H Lymphocytes % 11.5 L Monocytes % 8.8 Eosinophils % 0.2 Basophils % 0.1 Nucleated Red Blood 0.0 Cells % Immature Granulocytes # 0.040 H Neutrophils # 9.5 H Lymphocytes # 1.4 Monocytes # 1.1 H Eosinophils # 0.0 Basophils # 0.0 Nucleated Red Blood 0.0 Cells # Sodium Level 137 Potassium Level 3.3 L Chloride Level 104 Carbon Dioxide Level 23 Anion Gap 10 Blood Urea Nitrogen 9 Creatinine 0.33 L Est Glomerular Filtrat > 60 Rate mL/min Glucose Level 152 # Hemoglobin A1c 10.2 H Calcium Level 8.4 Phosphorus Level 1.9 L Magnesium Level 1.9 Total Bilirubin 0.9 Direct Bilirubin 0.00 Indirect Bilirubin 0.9 Aspartate Amino 25 Transf (AST/SGOT) Alanine 31 Aminotransferase (ALT/SG PT) Alkaline Phosphatase 53 Total Protein 6.3 Albumin 3.3 Globulin 3.00 Albumin/Globulin Ratio 1.10 Triglycerides Level 100 Cholesterol Level 118 LDL Cholesterol, 62 Calculated HDL Cholesterol 36 Cholesterol/HDL Ratio 3.2 Bedside Glucose 165 150 Medications Medication Current Medications Piperacillin Sod/ Tazobactam Sod 100 ml @ 200 mls/hr Q6 IVPB Last administered on 02/23/19 11:20; Admin Dose 200 MLS/HR; Start 02/22/19 at 12:00 Ondansetron HCl (Zofran Inj) 4 mg Q4H PRN IV NAUSEA; Start 02/22/19 at 07:00 IV Flush (NS 3 ml) 3 ml PER PROTOCOL IV ; Start 02/22/19 at 09:00 Acetaminophen (Tylenol Tab) 650 mg Q6H PRN PO .PAIN 1-3 OR TEMP Last administered on 02/23/19 11:27; Admin Dose 650 MG; Start 02/22/19 at 09:00 Acetaminophen (Tylenol Supp) 650 mg Q6H PRN [place] .PAIN 1-3 OR TEMP; Start 02/22/19 at 09:00 Hydromorphone HCl (Dilaudid) 1 mg Q3H PRN IV .SEVERE PAIN 7-10 Last administered on 02/23/19at 11:21; Admin Dose 1 MG; Start 02/22/19 at 09:30 Docusate Sodium (Colace) 100 mg Q12H PRN PO .CONSTIPATION; Start 02/22/19 at 09:00 Magnesium Hydroxide (Milk Of Mag) 30 ml DAILY PRN PO .CONSTIPATION; Start 02/22/19 at 09:00 Bisacodyl (Dulcolax Supp) 10 mg DAILY PRN [place] .CONSTIPATION; Start 02/22/19 at 09:00 Famotidine (Pepcid Iv) 20 mg Q12 IV Last administered on 02/23/19at 08:56; Admin Dose 20 MG; Start 02/22/19 at 09:00 Hydromorphone HCl (Dilaudid) 0.5 mg Q3H PRN IV PAIN LEVEL 4-7; Start 02/22/19 at 09:00 Sodium Chloride 1,000 ml @ 125 mls/hr Q8H IV Last administered on 02/23/19at 09:00; Admin Dose 125 MLS/HR; Start 02/22/19 at 09:30 Miscellaneous Information 1 ea NOTE XX ; Start 02/22/19 at 09:30 Glucose (Glutose) 15 gm Q15M PRN PO DECREASED GLUCOSE; Start 02/22/19 at 09:30 Glucose (Glutose) 22.5 gm Q15M PRN PO DECREASED GLUCOSE; Start 02/22/19 at 09:30 Dextrose (D50w Syringe) 25 ml Q15M PRN IV DECREASED GLUCOSE; Start 02/22/19 at 09:30 Dextrose (D50w Syringe) 50 ml Q15M PRN IV DECREASED GLUCOSE; Start 02/22/19 at 09:30 Glucagon (Glucagen) 1 mg Q15M PRN IM DECREASED GLUCOSE; Start 02/22/19 at 09:30 Glucose (Glutose) 15 gm Q15M PRN BUCCAL DECREASED GLUCOSE; Start 02/22/19 at 09:30 Insulin Aspart (Novolog Insulin Pen) NOVOLOG *MODERATE* ALGORI... Q4 SC Last administered on 02/23/19at 08:56; Admin Dose 2 UNIT; Start 02/22/19 at 13:00 MAIK SETH MD Feb 23, 2019 12:22
[2019-02-23] MEDS ORDERED: HYDROmorphONE 0.5 MG/0.5 ML SYG IV PRN (13:00)
[2019-02-23 15:30] VITALS: BP 112/69; PULSE 82; RESP 17
[2019-02-23 20:00] VITALS: BP 126/68; PULSE 97; RESP 19
[2019-02-24] VITALS (16 sets, daily range): BP systolic 98–140; BP diastolic 52–85; PULSE 70–101; RESP 14–31
[2019-02-24] MEDS: INSULIN ASPART [NOVOLOG] 3 ML PEN SC SCH ×6 (01:00→20:11)
[2019-02-24] MEDS: HYDROmorphONE 1 MG/ML SYG IV PRN ×6 (01:06→12:35)
[2019-02-24] MEDS: SOD CHLORIDE 0.9% 1,000 ML IV SCH ×3 (02:18→11:06)
[2019-02-24] MEDS: PIPER-TAZO 3.375 GM IV (PMX) 100 ML IVPB SCH ×3 (05:22→17:20)
[2019-02-24] MEDS: FAMOTIDINE 20 MG INJ IV SCH ×2 (08:20→20:00)
--- NOTE | 2019-02-24 10:05 | PN ---
Date/Time of Note Date/Time of Note DATE: 02/24/19 TIME: 10:04 Assessment/Plan VTE Prophylaxis Risk score (from Nsg)>0 risk: 2 SCD applied (from Nsg): Yes Pharmacological prophylaxis: other Lines/Catheters IV Catheter Type (from Nrsg): Peripheral IV Urinary Cath still in place: No Assessment/Plan Assessment/Plan 1. cgholecystitis, awairt surgical plan, cont abx Result Diagram: 02/23/19 0510 02/23/19 0510 Results 24hrs Laboratory Tests Test 02/23/19 13:04 02/23/19 17:23 02/23/19 20:13 02/24/19 01:00 Bedside Glucose 145 128 125 118 Test 02/24/19 05:15 02/24/19 08:19 Bedside Glucose 106 104 Subjective 24 Hr Interval Summary Free Text/Dictation no new complaints awaiting surgical consult Exam/Review of Systems Exam Vitals Vital Signs Date Temp Pulse Resp B/P (MAP) Pulse Ox O2 O2 Flow FiO2 Time Delivery Rate 02/24/19 98.1 101 17 133/85 99 Room Air 08:51 (101) Intake and Output 02/23/19 02/23/19 02/24/19 1515:00 23:00 07:00 IntakeIntake Total 100 ml 1100 ml 1575 ml BalanceBalance 100 ml 1100 ml 1575 ml Exam nad, soft tender Results Results 24hrs Laboratory Tests Test 02/23/19 13:04 02/23/19 17:23 02/23/19 20:13 02/24/19 01:00 Bedside Glucose 145 128 125 118 Test 02/24/19 05:15 02/24/19 08:19 Bedside Glucose 106 104 Medications Medication Current Medications Piperacillin Sod/ Tazobactam Sod 100 ml @ 200 mls/hr Q6 IVPB Last administered on 02/24/19at 05:22; Admin Dose 200 MLS/HR; Start 02/22/19 at 12:00 Ondansetron HCl (Zofran Inj) 4 mg Q4H PRN IV NAUSEA Last administered on 02/24/19at 08:48; Admin Dose 4 MG; Start 02/22/19 at 07:00 IV Flush (NS 3 ml) 3 ml PER PROTOCOL IV ; Start 02/22/19 at 09:00 Acetaminophen (Tylenol Tab) 650 mg Q6H PRN PO .PAIN 1-3 OR TEMP Last administered on 02/23/19at 20:55; Admin Dose 650 MG; Start 02/22/19 at 09:00 Acetaminophen (Tylenol Supp) 650 mg Q6H PRN RI .PAIN 1-3 OR TEMP; Start 02/22/19 at 09:00 Docusate Sodium (Colace) 100 mg Q12H PRN PO .CONSTIPATION; Start 02/22/19 at 09:00 Magnesium Hydroxide (Milk Of Mag) 30 ml DAILY PRN PO .CONSTIPATION; Start 02/22/19 at 09:00 Bisacodyl (Dulcolax Supp) 10 mg DAILY PRN RI .CONSTIPATION; Start 02/22/19 at 09:00 Famotidine (Pepcid Iv) 20 mg Q12 IV Last administered on 02/24/19at 08:20; Admin Dose 20 MG; Start 02/22/19 at 09:00 Sodium Chloride 1,000 ml @ 125 mls/hr Q8H IV Last administered on 02/24/19at 02:18; Admin Dose 125 MLS/HR; Start 02/22/19 at 09:30 Miscellaneous Information 1 ea NOTE XX ; Start 02/22/19 at 09:30 Glucose (Glutose) 15 gm Q15M PRN PO DECREASED GLUCOSE; Start 02/22/19 at 09:30 Glucose (Glutose) 22.5 gm Q15M PRN PO DECREASED GLUCOSE; Start 02/22/19 at 09:30 Dextrose (D50w Syringe) 25 ml Q15M PRN IV DECREASED GLUCOSE; Start 02/22/19 at 09:30 Dextrose (D50w Syringe) 50 ml Q15M PRN IV DECREASED GLUCOSE; Start 02/22/19 at 09:30 Glucagon (Glucagen) 1 mg Q15M PRN IM DECREASED GLUCOSE; Start 02/22/19 at 09:30 Glucose (Glutose) 15 gm Q15M PRN BUCCAL DECREASED GLUCOSE; Start 02/22/19 at 09:30 Insulin Aspart (Novolog Insulin Pen) NOVOLOG *MODERATE* ALGORI... Q4 SC Last administered on 02/23/19at 13:07; Admin Dose 2 UNIT; Start 02/22/19 at 13:00 Hydromorphone HCl (Dilaudid) 1 mg Q2H PRN IV .SEVERE PAIN 7-10 Last admi nistered on 02/24/19at 07:51; Admin Dose 1 MG; Start 02/23/19 at 13:30 Hydromorphone HCl (Dilaudid) 0.5 mg Q2H PRN IV PAIN LEVEL 4-7; Start 02/23/19 at 13:00 MAIK SETH MD Feb 24, 2019 10:05
--- NOTE | 2019-02-24 10:32 | CONS ---
Assessment/Plan Assessment/Plan Assessment/Plan (Daily) Cholelithiasis, clinical suspicious for acute cholecystitis mild elevated white blood cell count normal LFTs Plan keep patient n.p.o. continue IV antibiotics laparoscopic cholecystectomy I discussed details the procedure risk benefits alternatives patient is willing to proceed and or has been aware. Consultation Date/Type/Reason Admit Date/Time Feb 22, 2019 at 05:12 Date of Consultation: Feb 24, 2019 Type of Consult Surgical consult Reason for Consultation Abdominal pain, cholelithiasis, possible cholecystitis Requesting Provider: MAIK SETH MD Date/Time of Note DATE: 02/24/19 TIME: 10:28 Hx of Present Illness Patient 38-year-old female 3 months who presents with abdominal pain in the right upper quadrant epigastrium. Patient was seen in the emergency room this past sent home on pain medication and told to come for follow-up but had worsening pain and presented back to the emergency room was admitted on Monday. Patient saw Dr. Duffy 6 weeks ago and was to have laparoscopic cholecystectomy in March. However patient states that the pain has been increasing with crescendo attacks nausea. Evaluation emergency room ultrasound and labs were obtained showing normal LFTs but thickened gallbladder with multiple gallstones consistent with acute cholecystitis. Past Medical History Medical History: diabetes Home Meds Active Scripts Docusate Sodium* (Colace*) 100 Mg Capsule, 100 MG PO TID, #30 CAP Prov:BRO RECIO MD 02/21/19 Ibuprofen* (Motrin*) 800 Mg Tab, 800 MG PO Q6H PRN for PAIN AND OR ELEVATED TEMP, #30 TAB Prov:BRO RECIO MD 02/21/19 Hydrocodone/Acetaminophen ([place] 5-325 Tablet) 1 Each Tablet, 1 TAB PO Q6H PRN for PAIN, #20 TAB Prov:BRO RECIO MD 02/21/19 Ondansetron (Ondansetron Odt) 4 Mg Tab.rapdis, 4 MG PO Q6H PRN for NAUSEA AND/OR VOMITING, #10 TAB Prov:BRO RECIO MD 01/05/19 Hydrocodone/Acetaminophen ([place] 5-325 Tablet) 1 Each Tablet, 1 TAB PO Q6H PRN for PAIN, #20 TAB Prov:BRO RECIO MD 01/05/19 Ibuprofen* (Motrin*) 800 Mg Tab, 800 MG PO Q6H PRN for PAIN AND OR ELEVATED T EMP, #30 TAB Prov:BRO RECIO MD 01/05/19 Metformin* (Glucophage*) 500 Mg Tab, 500 MG PO BID, #20 TAB Prov:SAMIR BOYCE PA-C 02/04/18 Discontinued Reported Medications Vit-Iron Fumarate-FA ( Vitamin Tablet) 1 Each Tablet, 1 TAB PO DAILY, TAB 02/18/16 Discontinued Scripts Docusate Sodium* (Colace*) 100 Mg Capsule, 100 MG PO TID, #30 CAP Prov:BRO RECIO MD 01/05/19 Medications Current Medications Piperacillin Sod/ Tazobactam Sod 100 ml @ 200 mls/hr Q6 IVPB Last administered on 02/24/19at 05:22; Admin Dose 200 MLS/HR; Start 02/22/19 at 12:00 Ondansetron HCl (Zofran Inj) 4 mg Q4H PRN IV NAUSEA Last administered on 02/24/19at 08:48; Admin Dose 4 MG; Start 02/22/19 at 07:00 IV Flush (NS 3 ml) 3 ml PER PROTOCOL IV ; Start 02/22/19 at 09:00 Acetaminophen (Tylenol Tab) 650 mg Q6H PRN PO .PAIN 1-3 OR TEMP Last administered on 02/23/19at 20:55; Admin Dose 650 MG; Start 02/22/19 at 09:00 Acetaminophen (Tylenol Supp) 650 mg Q6H PRN SC .PAIN 1-3 OR TEMP; Start 02/22/19 at 09:00 Docusate Sodium (Colace) 100 mg Q12H PRN PO .CONSTIPATION; Start 02/22/19 at 09:00 Magnesium Hydroxide (Milk Of Mag) 30 ml DAILY PRN PO .CONSTIPATION; Start 02/22/19 at 09:00 Bisacodyl (Dulcolax Supp) 10 mg DAILY PRN SC .CONSTIPATION; Start 02/22/19 at 09:00 Famotidine (Pepcid Iv) 20 mg Q12 IV Last administered on 02/24/19at 08:20; Admin Dose 20 MG; Start 02/22/19 at 09:00 Sodium Chloride 1,000 ml @ 125 mls/hr Q8H IV Last administered on 02/24/19at 02:18; Admin Dose 125 MLS/HR; Start 02/22/19 at 09:30 Miscellaneous Information 1 ea NOTE XX ; Start 02/22/19 at 09:30 Glucose (Glutose) 15 gm Q15M PRN PO DECREASED GLUCOSE; Start 02/22/19 at 09:30 Glucose (Glutose) 22.5 gm Q15M PRN PO DECREASED GLUCOSE; Start 02/22/19 at 09:30 Dextrose (D50w Syringe) 25 ml Q15M PRN IV DECREASED GLUCOSE; Start 02/22/19 at 09:30 Dextrose (D50w Syringe) 50 ml Q15M PRN IV DECREASED GLUCOSE; Start 02/22/19 at 09:30 Glucagon (Glucagen) 1 mg Q15M PRN IM DECREASED GLUCOSE; Start 02/22/19 at 09:30 Glucose (Glutose) 15 gm Q15M PRN BUCCAL DECREASED GLUCOSE; Start 02/22/19 at 09:30 Insulin Aspart (Novolog Insulin Pen) NOVOLOG *MODERATE* ALGORI... Q4 SC Last administered on 02/23/19at 13:07; Admin Dose 2 UNIT; Start 02/22/19 at 13:00 Hydromorphone HCl (Dilaudid) 1 mg Q2H PRN IV .SEVERE PAIN 7-10 Last administered on 02/24/19at 10:25; Admin Dose 1 MG; Start 02/23/19 at 13:30 Hydromorphone HCl (Dilaudid) 0.5 mg Q2H PRN IV PAIN LEVEL 4-7; Start 02/23/19 at 13:00 Allergies: Coded Allergies: No Known Allergy (Unverified , 02/21/19) Past Surgical History Past Surgical Hx: no surgical history Social History Alcohol Use: none Smoking Status: Never smoker Drug Use: none Exam/Review of Systems Exam Vitals Vital Signs Date Temp Pulse Resp B/P (MAP) Pulse Ox O2 O2 Flow FiO2 Time Delivery Rate 02/24/19 98.1 101 17 133/85 99 Room Air 08:51 (101) Intake and Output 02/23/19 02/23/19 02/24/19 1515:00 23:00 07:00 IntakeIntake Total 100 ml 1100 ml 1575 ml BalanceBalance 100 ml 1100 ml 1575 ml Exam Abdomen obese nondistended moderate tenderness epigastric right upper quadrant with positive Patino sign Results Result Diagram: 02/23/19 0510 02/23/19 0510 Results 24hrs Laboratory Tests Test 02/23/19 13:04 02/23/19 17:23 02/23/19 20:13 02/24/19 01:00 Bedside Glucose 145 128 125 118 Test 02/24/19 05:15 02/24/19 08:19 Bedside Glucose 106 104 Medications Medication Current Medications Piperacillin Sod/ Tazobactam Sod 100 ml @ 200 mls/hr Q6 IVPB Last administered on 02/24/19at 05:22; Admin Dose 200 MLS/HR; Start 02/22/19 at 12:00 Ondansetron HCl (Zofran Inj) 4 mg Q4H PRN IV NAUSEA Last administered on 02/24/19at 08:48; Admin Dose 4 MG; Start 02/22/19 at 07:00 IV Flush (NS 3 ml) 3 ml PER PROTOCOL IV ; Start 02/22/19 at 09:00 Acetaminophen (Tylenol Tab) 650 mg Q6H PRN PO .PAIN 1-3 OR TEMP Last administered on 02/23/19at 20:55; Admin Dose 650 MG; Start 02/22/19 at 09:00 Acetaminophen (Tylenol Supp) 650 mg Q6H PRN SC .PAIN 1-3 OR TEMP; Start 02/22/19 at 09:00 Docusate Sodium (Colace) 100 mg Q12H PRN PO .CONSTIPATION; Start 02/22/19 at 09:00 Magnesium Hydroxide (Milk Of Mag) 30 ml DAILY PRN PO .CONSTIPATION; Start 02/22/19 at 09:00 Bisacodyl (Dulcolax Supp) 10 mg DAILY PRN SC .CONSTIPATION; Start 02/22/19 at 09:00 Famotidine (Pepcid Iv) 20 mg Q12 IV Last administered on 02/24/19at 08:20; Admin Dose 20 MG; Start 02/22/19 at 09:00 Sodium Chloride 1,000 ml @ 125 mls/hr Q8H IV Last administered on 02/24/19at 02:18; Admin Dose 125 MLS/HR; Start 02/22/19 at 09:30 Miscellaneous Information 1 ea NOTE XX ; Start 02/22/19 at 09:30 Glucose (Glutose) 15 gm Q15M PRN PO DECREASED GLUCOSE; Start 02/22/19 at 09:30 Glucose (Glutose) 22.5 gm Q15M PRN PO DECREASED GLUCOSE; Start 02/22/19 at 09:30 Dextrose (D50w Syringe) 25 ml Q15M PRN IV DECREASED GLUCOSE; Start 02/22/19 at 09:30 Dextrose (D50w Syringe) 50 ml Q15M PRN IV DECREASED GLUCOSE; Start 02/22/19 at 09:30 Glucagon (Glucagen) 1 mg Q15M PRN IM DECREASED GLUCOSE; Start 02/22/19 at 09:30 Glucose (Glutose) 15 gm Q15M PRN BUCCAL DECREASED GLUCOSE; Start 02/22/19 at 09:30 Insulin Aspart (Novolog Insulin Pen) NOVOLOG *MODERATE* ALGORI... Q4 SC Last administered on 02/23/19at 13:07; Admin Dose 2 UNIT; Start 02/22/19 at 13:00 Hydromorphone HCl (Dilaudid) 1 mg Q2H PRN IV .SEVERE PAIN 7-10 Last administered on 02/24/19at 10:25; Admin Dose 1 MG; Start 02/23/19 at 13:30 Hydromorphone HCl (Dilaudid) 0.5 mg Q2H PRN IV PAIN LEVEL 4-7; Start 02/23/19 at 13:00 GIUSEPPE MENG MD Feb 24, 2019 10:32
--- NOTE | 2019-02-24 11:48 | PREAC ---
Date/Time of Note Date/Time of Note DATE: 02/24/19 TIME: 11:47 Anesthesia Eval and Record Evaluation Time Pre-Procedure Interview DATE: 02/24/19 TIME: 11:47 Age 38 Sex female NPO: 8 hrs Preoperative diagnosis acute cholecystitis Planned procedure laparoscopic cholecystectomy Past Medical History Past Medical History: Includes Endo: Diabetes GI: Obesity Surgery & Anesthesia Issues No known issue Meds Anticoagulation: No Beta Liudmila within 24 hr: No Reason Beta Liudmila not given: Pt. not on B-Liudmila Active Scripts Docusate Sodium* (Colace*) 100 Mg Capsule, 100 MG PO TID, #30 CAP Prov:BRO RECIO MD 02/21/19 Ibuprofen* (Motrin*) 800 Mg Tab, 800 MG PO Q6H PRN for PAIN AND OR ELEVATED TEMP, #30 TAB Prov:BRO RECIO MD 02/21/19 Hydrocodone/Acetaminophen ([place] 5-325 Tablet) 1 Each Tablet, 1 TAB PO Q6H PRN for PAIN, #20 TAB Prov:BRO RECIO MD 02/21/19 Ondansetron (Ondansetron Odt) 4 Mg Tab.rapdis, 4 MG PO Q6H PRN for NAUSEA AND/OR VOMITING, #10 TAB Prov:BRO RECIO MD 01/05/19 Hydrocodone/Acetaminophen ([place] 5-325 Tablet) 1 Each Tablet, 1 TAB PO Q6H PRN for PAIN, #20 TAB Prov:BRO RECIO MD 01/05/19 Ibuprofen* (Motrin*) 800 Mg Tab, 800 MG PO Q6H PRN for PAIN AND OR ELEVATED TEMP, #30 TAB Prov:BRO RECIO MD 01/05/19 Metformin* (Glucophage*) 500 Mg Tab, 500 MG PO BID, #20 TAB Prov:SAMIR BOYCE PA-C 02/04/18 Discontinued Reported Medications Vit-Iron Fumarate-FA ( Vitamin Tablet) 1 Each Tablet, 1 TAB PO DAILY, TAB 02/18/16 Discontinued Scripts Docusate Sodium* (Colace*) 100 Mg Capsule, 100 MG PO TID, #30 CAP Prov:BRO RECIO MD 01/05/19 Current Medications Piperacillin Sod/ Tazobactam Sod 100 ml @ 200 mls/hr Q6 IVPB Last administered on 02/24/19at 05:22; Admin Dose 200 MLS/HR; Start 02/22/19 at 12:00 Ondansetron HCl (Zofran Inj) 4 mg Q4H PRN IV NAUSEA Last administered on 02/24/19at 08:48; Admin Dose 4 MG; Start 02/22/19 at 07:00 IV Flush (NS 3 ml) 3 ml PER PROTOCOL IV ; Start 02/22/19 at 09:00 Acetaminophen (Tylenol Tab) 650 mg Q6H PRN PO .PAIN 1-3 OR TEMP Last administered on 02/23/19at 20:55; Admin Dose 650 MG; Start 02/22/19 at 09:00 Acetaminophen (Tylenol Supp) 650 mg Q6H PRN [place] .PAIN 1-3 OR TEMP; Start 02/22/19 at 09:00 Docusate Sodium (Colace) 100 mg Q12H PRN PO .CONSTIPATION; Start 02/22/19 at 09:00 Magnesium Hydroxide (Milk Of Mag) 30 ml DAILY PRN PO .CONSTIPATION; Start 02/22/19 at 09:00 Bisacodyl (Dulcolax Supp) 10 mg DAILY PRN ME .CONSTIPATION; Start 02/22/19 at 09:00 Famotidine (Pepcid Iv) 20 mg Q12 IV Last administered on 02/24/19at 08:20; Admin Dose 20 MG; Start 02/22/19 at 09:00 Sodium Chloride 1,000 ml @ 125 mls/hr Q8H IV Last administered on 02/24/19at 02:18; Admin Dose 125 MLS/HR; Start 02/22/19 at 09:30 Miscellaneous Information 1 ea NOTE XX ; Start 02/22/19 at 09:30 Glucose (Glutose) 15 gm Q15M PRN PO DECREASED GLUCOSE; Start 02/22/19 at 09:30 Glucose (Glutose) 22.5 gm Q15M PRN PO DECREASED GLUCOSE; Start 02/22/19 at 09:30 Dextrose (D50w Syringe) 25 ml Q15M PRN IV DECREASED GLUCOSE; Start 02/22/19 at 09:30 Dextrose (D50w Syringe) 50 ml Q15M PRN IV DECREASED GLUCOSE; Start 02/22/19 at 09:30 Glucagon (Glucagen) 1 mg Q15M PRN IM DECREASED GLUCOSE; Start 02/22/19 at 09:30 Glucose (Glutose) 15 gm Q15M PRN BUCCAL DECREASED GLUCOSE; Start 02/22/19 at 09:30 Insulin Aspart (Novolog Insulin Pen) NOVOLOG *MODERATE* ALGORI... Q4 SC Last administered on 02/23/19at 13:07; Admin Dose 2 UNIT; Start 02/22/19 at 13:00 Hydromorphone HCl (Dilaudid) 1 mg Q2H PRN IV .SEVERE PAIN 7-10 Last administered on 02/24/19at 10:25; Admin Dose 1 MG; Start 02/23/19 at 13:30 Hydromorphone HCl (Dilaudid) 0.5 mg Q2H PRN IV PAIN LEVEL 4-7; Start 02/23/19 at 13:00 Meds reviewed: Yes Allergies Coded Allergies: No Known Allergy (Unverified , 02/21/19) Allergies Reviewed: Yes Labs/Studies Labs Reviewed: Reviewed by anesthesiologist Result Diagram: 02/23/1950902/23/19509 test: Negative Pre-procedure Exam Last vitals Vital Signs Date Temp Pulse Resp B/P (MAP) Pulse Ox O2 O2 Flow FiO2 Time Delivery Rate 02/24/19 98.1 101 17 133/85 99 Room Air 08:51 (101) Airway: Adequate mouth opening, Adequate thyromental dist Mallampati: Mallampati II Teeth: Normal Lung: Normal Heart: Normal ASA Physical Status ASA physical status: 2 Emergency: None Planned Anesthetic General/MAC: ETT Nerve block: TAP (bilateral) Planned Pain Management Parenteral pain med Pre-operative Attestations Prior to commencing anesthesia and surgery, the patient was re-evaluated, there was verification of: *The patient's identity *The results of appropriate recent lab work and preoperative vital signs *The above evaluation not changing prior to induction *Anesthetic plan, risk benefits, alternative and complications discussed with patient/family; questions answered; patient/family understands, accepts and wishes to proceed. BRENNA KRAUS MD Feb 24, 2019 11:48
[2019-02-24] MEDS ORDERED: LIDOCAINE 1% (MPF) 30 ML INJ ONE (12:49)
[2019-02-24] MEDS ORDERED: BUPIVACAINE 0.5%/EPI (SDV) 30 ML INJ ONE (12:49)
[2019-02-24] MEDS ORDERED: PROPOFOL 20 ML ONE (13:17)
[2019-02-24] MEDS ORDERED: ROCURONIUM 50 MG INJ ONE (13:17)
[2019-02-24] MEDS ORDERED: SUCCINYLCHOLINE CHLORIDE 100 MG/5 ML SYG IV ONE (13:17)
[2019-02-24] MEDS ORDERED: LIDOCAINE 2% (SDV) 5 ML INJ ONE (13:17)
[2019-02-24] MEDS ORDERED: ROPIVACAINE 0.5 % 30 ML VIAL ONE (13:17)
[2019-02-24] MEDS ORDERED: MIDAZOLAM 1 MG/ML 2 ML INJ ONE (13:17)
[2019-02-24] MEDS ORDERED: FENTAnyl 50 MCG/ML VIAL ONE (13:17)
[2019-02-24] MEDS ORDERED: MEPERIDINE 25 MG INJ IV PRN (13:30)
[2019-02-24] MEDS ORDERED: DIPHENHYDRAMINE 50 MG INJ IV PRN (13:30)
[2019-02-24] MEDS ORDERED: PROCHLORPERAZINE 10 MG INJ IV PRN (13:30)
[2019-02-24] MEDS ORDERED: HYDROmorphONE 1 MG/5 ML IV SYRINGE IV PRN ×3 (13:30)
[2019-02-24] MEDS ORDERED: ONDANSETRON 4 MG INJ IV PRN (13:30)
[2019-02-24] MEDS ORDERED: FENTAnyl 50 MCG/ML VIAL IV PRN ×3 (13:30)
[2019-02-24] MEDS ORDERED: ONDANSETRON 4 MG INJ ONE (13:58)
[2019-02-24] MEDS ORDERED: FAMOTIDINE 20 MG INJ ONE (13:58)
[2019-02-24] MEDS ORDERED: HYDROmorphONE 2 MG/ML SYG ONE (14:35)
[2019-02-24] MEDS ORDERED: HEMOSTATIC MATRIX/ THROMBIN 1 EA SYG ZFS ONE (15:02)
[2019-02-24] MEDS ORDERED: GLYCOPYRROLATE 0.4 MG INJ ONE (15:22)
[2019-02-24] MEDS ORDERED: NEOSTIGMINE 3 MG/3 ML SYRINGE ONE (15:22)
--- NOTE | 2019-02-24 15:47 | PAC ---
Date/Time of Note Date/Time of Note DATE: 02/24/19 TIME: 15:46 Post-Anesthesia Notes Post-Anesthesia Note Last documented vital signs Vital Signs Date Temp Pulse Resp B/P (MAP) Pulse Ox O2 O2 Flow FiO2 Time Delivery Rate 02/24/19 72 14 118/72 99 Mask 8.0 15:42 (87) 02/24/19 98.1 15:37 Activity: WNL Respiratory function: WNL Cardiovascular function: WNL Mental status: Baseline Pain reasonably controlled: Yes Hydration appropriate: Yes Nausea/Vomiting absent: Yes Comments BP: 118/72 HR: 77 RR: 15 T: 98.1 SaO2: 99% BRENNA KRAUS MD Feb 24, 2019 15:47
--- NOTE | 2019-02-24 15:50 | OPR ---
Date/Time of Note Date/Time of Note DATE: 02/24/19 TIME: 15:43 Operative Report Procedure Date: Feb 24, 2019 Preoperative Diagnosis Acute and chronic cholecystitis, cholelithiasis Postoperative Diagnosis Same Operation/Procedure Performed Laparoscopic cholecystectomy Surgeon Giuseppe Correia MD see signature line Lot Technician None Anesthesia Type: general Anesthesiologist: BRENNA KRAUS MD Estimated Blood Loss: 10 - 50 ml's Transfusion none Specimen Gallbladder and content Grafts/Implants none Tubes/Drains None Complications none Pt Condition Post Procedure: stable Disposition: PACU Indications Patient with crescendo worsening pain and tenderness epigastric right upper quadrant known cholelithiasis on ultrasound on admission consistent with acute cholecystitis with gallbladder wall thickening pericholecystic fluid mild elevated white blood cell Procedure Description Patient brought to the operating placed supine position general she is administered with intubation patient received a tap block by anesthesia was prepped and draped in standard sterile fashion timeout was completed. A Veress needle was used left upper quadrant Lea's point insufflation delivered to maintain pneumoperitoneum 50 minutes prior to the procedure. A small stab incision made just above the umbilicus and a 5 mm trocar was inserted direct visualization with a 30 femoral laparoscope the Veress needle was observed and removed an epigastric 11 mm trocar and 2 right side femoral trochars inserted next the patient was placed in slight head up right side up position a Aris arm retractor was placed in the right side of the operating table the gallbladder was markedly distended and with some omentum lying over it. This was carefully taken down and then to facilitate grasping the gallbladder a cholecystostomy was made with hook cautery and then suction irrigation was used to decompress the gallbladder of the bile to facilitate grasping the gallbladder which was lifted over the edge of the right lobe liver gallbladder is markedly thickened throughout and even down to the neck there was no distinct cystic duct noted but there was a inflammatory process with thickened tissue from the neck down towards what appeared to be the common duct in order to facilitate a safe dissection a top down technique was performed by using hook cautery around the posterior aspect of the gallbladder into a plane between the liver and the gallbladder at some areas the liver parenchyma was infected entered because of very thickened inflamed posterior wall of the gallbladder. With suction irrigation and blunt dissection with a Endo peanut the neck of the gallbladder was able to be better visualized and the cystic duct was able to be skeletonized by keeping a critical view and using 210 mm clips proximally 1 distally and then divided the cystic artery was embedded in the inflammatory tissue by the lymph node of [place] 2 clips were placed possibly one distally and divided with hook cautery above. The remainder of the gallbladder was scored the gallbladder was able to be lifted up out of the liver bed because of the intense edema or the get the gallbladder was able to be removed just by blunt dissection retraction. Gallbladder is then placed to the side cautery was used to control hemostasis and then FloSeal finally. There was 1 L of normal saline which was used to irrigate and aspirate until clear a s pecimen bag was inserted at the epigastric port the gallbladder placed and this was brought through that wound and was enlarging to facilitate delivery of the gallbladder. Final inspection showed good hemostasis the an Endo Close port site closure device with a cannula was used with 2 interrupted 0 Ethibond sutures were then tied with good fascial closure. The wound then irrigated and the trochars were all removed skin incisions closed with 4-0 Monocryl and Dermabond for dressing patient was extubated in the operating room and then brought to recovery in stable condition. Sponge and needle count correct x2. GIUSEPPE CORREIA MD Feb 24, 2019 15:50
[2019-02-24] MEDS ORDERED: IBUPROFEN 600 MG TAB PO PRN (16:00)
[2019-02-24] MEDS ORDERED: ACETAMINOPHEN 325 MG TAB PO PRN (16:00)
[2019-02-24] MEDS: HYDROmorphONE 0.5 MG/0.5 ML SYG IV PRN ×2 (18:36→22:49)
[2019-02-24] MEDS: KETOROLAC 30 MG INJ IV PRN (19:56)
[2019-02-25] MEDS: PIPER-TAZO 3.375 GM IV (PMX) 100 ML IVPB SCH ×4 (00:20→17:35)
[2019-02-25] MEDS: SOD CHLORIDE 0.9% 1,000 ML IV SCH ×3 (01:30→17:30)
[2019-02-25] MEDS: KETOROLAC 30 MG INJ IV PRN ×2 (02:15→09:09)
[2019-02-25 02:47] VITALS: BP 121/70; PULSE 75; RESP 20
[2019-02-25] MEDS: HYDROmorphONE 0.5 MG/0.5 ML SYG IV PRN ×4 (02:58→15:32)
[2019-02-25] MEDS ORDERED: ENOXAPARIN 40 MG/0.4 ML SYG SC ONE (05:41)
[2019-02-25] MEDS ORDERED: ENOXAPARIN 40 MG/0.4 ML SYG SC SCH (07:00)
[2019-02-25] MEDS: FAMOTIDINE 20 MG INJ IV SCH (08:06)
[2019-02-25] MEDS: INSULIN ASPART [NOVOLOG] 3 ML PEN SC SCH ×3 (08:08→17:34)
[2019-02-25 08:55] VITALS: BP 121/76; PULSE 85; RESP 18
--- NOTE | 2019-02-25 09:50 | PDOCDIS ---
Discharge Instructions CONDITION [id number] Patient Condition: [id number] Good HOME CARE INSTRUCTIONS: [id number] Special Diet: [id number] soft and advance to diabetic ACTIVITY: [id number] Activity Restrictions: [id number] Slowly Increase Activity Avoid heavy lifting FOLLOW UP/APPOINTMENTS Follow-up Plan pcp [address] Correia 1 week RADHA DUMONT MD Feb 25, 2019 09:50
--- NOTE | 2019-02-25 10:24 | DS ---
DATE OF ADMISSION: 02/22/2019 DATE OF DISCHARGE: 02/25/2019 DISCHARGE DIAGNOSES: 1. A 38-year-old female with acute on chronic cholecystitis. 2. Status post laparoscopy cholecystectomy. 3. Type 2 diabetes mellitus. 4. Moderate obesity. HOSPITAL COURSE: A 38-year-old female who presented to emergency room with complaint of right upper quadrant pain for the last 4 days prior to admission. This was associated with nausea and vomiting. She was diagnosed with acute on chronic cholecystitis. The patient was taken to the operating room by Dr. Correia. She underwent laparoscopic cholecystectomy. There were no intraoperative or postoper ative complications. The patient tolerated oral intake. She is in stable condition for discharge. I instructed her to advance her diet slowly. MEDICATIONS ON DISCHARGE: 1. [place] 5/325 one tablet every 4 hours as needed, #20. 2. Resume metformin as previously. 3. Follow up with PCP in 1 week. 4. Follow up with Dr. Correia in 1 week. Dictated By: RADHA DARDEN/MEREDITH Conf#: [id number] DID#: [id number] CC: GIUSEPPE CORREIA MD; MAIK SULLIVAN MD; EMILIANA GUILLAUME MD;*EndCC*
[2019-02-25 15:52] VITALS: BP 129/68; PULSE 89; RESP 18
--- NOTE | 2019-02-28 13:15 | RADRPT ---
Vent Rate: 75 bpm RR Interval: 0 msec [place] Interval: 158 msec QRS Duration: 84 msec QT Interval: 426 msec QTC Interval: 475 msec P-R-T [place]: 61 - -14 - 42 degrees Normal sinus rhythm Normal ECG Electronically Signed By: Baldo Mcconnell
== END 2019-02-25 18:19 | disposition home or self-care (01) | DRG 419 ==
LOC: E/R 03:18 → PP2 05:12
PROVIDERS: ADMIT Internal Medicine; ATTEND Internal Medicine
PROC: 0FT44ZZ Resection of Gallbladder, Percutaneous Endoscopic Approach (ICD-10-PCS; principal; 2019-02-24 14:00)
DX: K80.12 Calculus of gallbladder with acute and chronic cholecystitis without obstruction (principal); E11.9 Type 2 diabetes mellitus without complications; E66.9 Obesity, unspecified; Z68.32 Body mass index [BMI] 32.0-32.9, adult; Z79.84 Long term (current) use of oral hypoglycemic drugs
CPT/HCPCS: 80053; 80061; 82150; 82962; 83036; 83690; 83735; 84100; 85025; 85610; 85730; 88304; 93005; 96374; 96375; J1170; J1650; J1815; J1885; J2250; J2270; J2405; J2543; J2710; J2795; J3010; J7030